=== PATIENT | male | born 1990 | race African-American/Black ===

== ENCOUNTER 2020-02-11 18:43 | Emergency (ER) | payer OTHER, SELFPAY ==
[2020-02-11 18:46] VITALS: BP 143/88; PULSE 79; RESP 18; TEMP 36.4; O2SAT 99
--- NOTE | 2020-02-11 19:14 | ED.SKABFB ---
HPI - Skin/Abscess/Foreign Bdy General Chief complaint: Skin/Abscess/Foreign Body Stated complaint: wounds that are draining Time Seen by Provider: 02/11/20 19:02 Source: patient Mode of arrival: ambulatory Limitations: no limitations History of Present Illness HPI narrative: This patient is a 30 year old male who presents for evaluation left ankle wound. Patient reports he developed small bump to his left ankle in December. He states this bump has been itching and he has been scratching it. He noticed over the few days the bump has increased in size and it is draining. He denies nausea, vomiting, fever or chills. His partner also reports he has another small bump on his right flank. They are unsure if it is a bite. Related Data Allergies Allergy/AdvReac Type Severity Reaction Status Date / Time No Known Allergies Allergy Unknown Verified 02/11/20 19:18 Review of Systems Review of Systems: All systems reviewed & are unremarkable except as noted in HPI and below Constitutional: Constitutional: Denies chills and Denies fever(s) Gastrointestinal: Gastrointestinal: Denies nausea and Denies vomiting Integumentary/Breasts: Skin/Breast: Reports pruritus, Reports erythema and Reports rash Neurologic: Denies dizziness and Denies weakness PMFSH Past Medical History Medical History (Updated 02/12/20 @ 00:00 by Russ Dadavid) Patient denies medical problems Surgical History Surgical History (Updated 02/11/20 @ 19:15 by Vero Mcneal MD) No significant past surgical history Social History Social History (Updated 02/11/20 @ 19:15 by Vero Mcneal MD) Smoking status: Never smoker Alcohol intake: current Alcohol use details: occasional Substance use: never Gender identity (if verbalized by the patient): Female Exam Const: General: no acute distress and alert Orientation/consciousness: patient oriented x3 Chest: Chest palpation & inspection: normal inspection of the chest Skin: Other: left posterior ankle with small papule with daley crusting. no surrounding induration or swelling Neuro: General: patient oriented x3 and moves all extremities Extrem: General: normal to inspection and no pedal edema Other: FROm Psych: Mental Status: mental status grossly normal Course Reevaluation(s) Reevaluation #1: I have discussed with patient that his bump on his left ankle is infected and that is the cause of his drainage Date: 02/11/20 Time: 19:20 Vital Signs Vital signs: Vital Signs Temperature 97.5 F L 02/11/20 18:46 Pulse Rate 79 02/11/20 18:46 Respiratory Rate 18 02/11/20 18:46 Blood Pressure 143/88 H 02/11/20 18:46 Pulse Oximetry 99 02/11/20 18:46 Temperature 98.2 F 02/11/20 19:46 Pulse Rate 65 02/11/20 19:46 Respiratory Rate 16 02/11/20 19:46 Blood Pressure 124/80 02/11/20 19:46 Pulse Oximetry 99 02/11/20 19:46 Discharge Plan Discharge Clinical Impression: Impetigo Patient Disposition: Home, Self-Care Condition: Stable Instructions: Antibiotic Form, Impetigo (ED), Folliculitis (ED) Additional Instructions: Apply cream to your left ankle and take antibiotics. Follow up with your primary care physician as needed. Prescriptions: New mupirocin calcium 2 % cream 1 applic TOPICAL BID Qty: 15 RF: 0 cephalexin [Keflex] 250 mg capsule 250 mg PO Q6H 7 Days Qty: 28 RF: 0 Follow-up/Referrals: Remy Rutherford MD [Primary Care Provider] - Discharge Date/Time: 02/11/20 19:47
[2020-02-11 19:46] VITALS: BP 124/80; PULSE 65; RESP 16; TEMP 36.8; O2SAT 99
== END 2020-02-11 19:47 | disposition home or self-care (01) ==
PROVIDERS: Emergency Provider General Practice; PCP Family Medicine
DX: L01.00 Impetigo, unspecified (principal)
CPT/HCPCS: 99283

== ENCOUNTER 2020-05-24 11:31 | Emergency (ER) | payer OTHER, SELFPAY ==
[2020-05-24 11:40] VITALS: BP 136/82; PULSE 76; RESP 16; TEMP 36.3; O2SAT 100
--- NOTE | 2020-05-24 12:21 | ED.EYEPROB ---
HPI - Eye Problem General Chief complaint: Eye Problems Stated complaint: eyes watery, pink Source: patient and RN notes reviewed Mode of arrival: ambulatory History of Present Illness HPI Narrative: This is a 30-year-old black male who presented to the urgent care today with complaints of discomfort to his eyes bilaterally. According to patient he developed itchiness, redness and pain to his left eye. When he woke up the following morning it had migrated to his right eye. Patient also noted that he had a yellowish drainage with debris around his eyes when he woke up in the morning. Patient denies any injury visual disturbance, foreign bodies to his eyes. Patient has not done anything at home to relieve his pain . The patient denies SOB, CP, palpitation, extremity numbness, lightheadedness, dizziness, constipation, diarrhea, chills, or fever. MD chief complaint: eye pain and eye redness Duration: constant Location: both eyes Eye Symptoms: burning, redness, pain, itching and discharge Related Data Allergies Allergy/AdvReac Type Severity Reaction Status Date / Time No Known Allergies Allergy Unknown Verified 05/24/20 11:45 Review of Systems Review of Systems: All systems reviewed & are unremarkable except as noted in HPI and below (10 point system review) [facility] Past Medical History Medical History Patient denies medical problems Surgical History Surgical History No significant past surgical history Social History Social History Smoking status: Never smoker Alcohol intake: current Drinks per week: 4 Substance use: never Substance use type: does not use Gender identity (if verbalized by the patient): Female Exam Narrative: Exam Narrative: GENERAL: This is a well-nourished, well-developed patient, in no apparent distress. HEAD: normocephalic, atraumatic. EYES: PERRL. Vision is grossly intact. conjuntival chemosis/edema EARS: External ears normal, auditory canals clear and without drainage, TMs normal without perforation. Hearing grossly intact. NOSE: External nose normal with no obvious nasal discharge, nares without redness, no rhinorrhea. THROAT: Mucous membranes moist, posterior pharynx clear. NECK: Neck supple, non-tender without lymphadenopathy, masses or thyromegaly. CARDIOVASCULAR: Regular rate and rhythm without murmurs, gallops, or rubs. RESPIRATORY: Clear to auscultation. Breath sounds equal bilaterally. No wheezes, rales, or rhonchi. GASTROINTESTINAL: Abdomen soft, non-tender, nondistended. Bowel sounds are active. No hepato-splenomegaly, or palpable masses. No guarding. SKIN: warm, intact with no suspicious lesions or rash, good texture and turgor. NEURO: awake, alert, and oriented to person, place and time. There were no obvious focal neurologic abnormalities. Steady gait EXTREMITIES: Normal range of motion. No edema. No calf tenderness. Negative Homans sign bilaterally. BACK: Nontender without deformity or crepitance. No flank tenderness. Course Vital Signs Vital signs: Vital Signs Temperature 97.4 F L 05/24/20 11:40 Pulse Rate 76 05/24/20 11:40 Respiratory Rate 16 05/24/20 11:40 Blood Pressure 136/82 05/24/20 11:40 Pulse Oximetry 100 05/24/20 11:40 Temperature 97.4 F L 05/24/20 11:40 Pulse Rate 76 05/24/20 11:40 Respiratory Rate 16 05/24/20 11:40 Blood Pressure 136/82 05/24/20 11:40 Pulse Oximetry 100 05/24/20 11:40 Discharge Plan Discharge Clinical Impression: Bacterial conjunctivitis Patient Disposition: Home, Self-Care Condition: Stable Instructions: Antibiotic Form, Conjunctivitis (ED) Additional Instructions: Eye drops as prescribed. -Do this for 3 to 4 days until all redness and discharge has disappeared. -Cold compresses to the affected eye for comf
== END 2020-05-24 12:22 | disposition home or self-care (01) ==
PROVIDERS: Emergency Provider Nurse Practitioner
DX: H10.9 Unspecified conjunctivitis (principal)
CPT/HCPCS: 99213; G0463

== ENCOUNTER 2020-05-25 16:50 | Emergency (ER) | payer OTHER, SELFPAY ==
[2020-05-25 16:54] VITALS: BP 131/90; PULSE 66; RESP 16; TEMP 36.3; O2SAT 100
--- NOTE | 2020-05-25 17:41 | ED.EYEPROB ---
HPI - Eye Problem General Chief complaint: Eye Problems Stated complaint: drainage from eyes Time Seen by Provider: 05/25/20 17:11 Source: patient Mode of arrival: ambulatory Limitations: no limitations History of Present Illness HPI Narrative: Patient is a 30-year-old male who presents to emergency department for evaluation of bilateral conjunctival injection and discharge patient denies injury trauma has been putting in eyedrops with no improvement. complaint denies any URI symptoms or other complaints and on arrival is in the room in no distress. Patient was seen at urgent care yesterday and started on medications and notes that he has not improved at this time. Seen yesterday as noted just started this medication Related Data Allergies Allergy/AdvReac Type Severity Reaction Status Date / Time No Known Allergies Allergy Unknown Verified 05/25/20 16:57 Review of Systems Review of Systems: All systems reviewed & are unremarkable except as noted in HPI and below PMFSH Past Medical History Medical History (Updated 05/25/20 @ 17:44 by Moody Mcrae PA-C) Patient denies medical problems Surgical History Surgical History No significant past surgical history Social History Social History Smoking status: Never smoker Alcohol intake: current Drinks per week: 4 Substance use: never Substance use type: does not use Gender identity (if verbalized by the patient): Male Exam Narrative: Exam Narrative: GENERAL: Well-appearing, well-nourished, and in no acute distress. HEAD: Normocephalic, atraumatic. EYES: PERRLA and EOMI. bilateral conjunctival injection with some matting and conjunctival edema ENT: Nares clear, no rhinorrhea or epistaxis. Mucous membranes moist. EXTREMITIES: Normal range of motion. No edema. SKIN: Warm, dry, no rash. NEURO: No focal deficits. Alert and oriented x3. PSYCH: Normal mood and affect. Course Course Emergency Course: Patient with conjunctivitis will be discharged with instructions to follow with ophthalmology afebrile nontoxic-appearing erythromycin ophthalmic ointment placed in the emergency department Vital Signs Vital signs: Vital Signs Temperature 97.4 F L 05/25/20 16:54 Pulse Rate 66 05/25/20 16:54 Respiratory Rate 16 05/25/20 16:54 Blood Pressure 131/90 05/25/20 16:54 Pulse Oximetry 100 05/25/20 16:54 Temperature 97.4 F L 05/25/20 16:54 Pulse Rate 66 05/25/20 16:54 Respiratory Rate 16 05/25/20 16:54 Blood Pressure 131/90 05/25/20 16:54 Pulse Oximetry 100 05/25/20 16:54 MDM - Eye Problem MDM Narrative Medical decision making narrative: Patient with likely conjunctivitis unknown etiology no other URI symptoms or complaints felt appropriate for discharge home with referral for ophthalmology will be given antibiotic and instructions on preservative-free tears Discharge Plan Discharge Clinical Impression: Bacterial conjunctivitis Patient Disposition: Home, Self-Care Condition: Stable Instructions: Antibiotic Form, Conjunctivitis (ED) Additional Instructions: Follow-up with ophthalmology by phone first thing tomorrow to set up for reevaluation Use [id number] preservative-free tears every 2 hours for symptom relief Return if symptoms worsen or concerns or any increase in redness swelling pain fever over 100.5 vomiting or visual changes Cool compresses for symptom relief Ibuprofen and/or Tylenol for pain and/or fever if you do not have an allergy Prescriptions: No Action gentamicin-prednisolone 0.3-1 % drops,suspension 1 drp ophthalmic (eye) QID Qty: 5 RF: 1 ketotifen fumarate [Allergy Eye (ketotifen)] 0.025 % (0.035 %) drops 1 drp ophthalmic (eye) BID PRN (Reason: allergy symptoms) Qty: 5 RF: 0 diphenhydramine HCl [Benadryl] 25 mg capsule 25 mg PO TID PRN (Reason: itching) Qty: 20 RF
[2020-05-25] MEDS: ERYTHROMYCIN OPHTH OINTMENT 1 GM TUBE 1 APPLIC EACH EYE (18:02)
[2020-05-25 18:26] VITALS: BP 136/84; PULSE 87; RESP 17; O2SAT 99
== END 2020-05-25 18:27 | disposition home or self-care (01) ==
PROVIDERS: Emergency Provider Emergency Medicine; PCP Family Medicine
DX: H10.89 Other conjunctivitis (principal)
CPT/HCPCS: 99283; A9270